=== PATIENT | male | born 2000 | race Hispanic/Latino ===

== ENCOUNTER → 2022-11-28 | Outpatient (CLI) | payer OTHER ==
[~2022-11-28] MED LIST: DIATRIZOATE MEGL/DIATRIZOA SOD 30 ML BTL PO ONE; IOPAMIDOL 370 MG/ML 100 ML INFUS..BTL INJ ONE
== END ==
LOC: CT 09:43
PROVIDERS: ATTEND Surgery
DX: R10.32 Left lower quadrant pain (principal); K76.0 Fatty (change of) liver, not elsewhere classified; Q53.10 Unspecified undescended testicle, unilateral
CPT/HCPCS: 74177; Q9963; Q9967